=== PATIENT | female | born 1995 | race Caucasian/White ===

== ENCOUNTER → 2023-12-26 | Emergency (ER) | payer BC ==
[~2023-12-26] VITALS: Ht 154.9 cm; Wt 48.5 kg
[~2023-12-26] MED LIST: 0.9 % SODIUM CHLORIDE 1,000 ML IV SCH; FAMOTIDINE/PF 20 MG in 0.9 % SODIUM CHLORIDE 8 ML IV PUSH STA; KETOROLAC TROMETHAMINE 30 MG VIAL IV ONE; ONDANSETRON HCL 2 MG/ML VIAL IV ONE
== END | disposition left against medical advice (07) ==
LOC: ER 09:15
DX: B34.9 Viral infection, unspecified (principal); R10.9 Unspecified abdominal pain